=== PATIENT | female | born 1985 | race Caucasian/White ===

== ENCOUNTER 2020-03-04 10:35 | Day surgery (SDC) | payer OTHER ==
[2020-03-04] MEDS ORDERED: PROPOFOL 200 MG/20 ML VIAL IVP ONE (10:36)
[2020-03-04] MEDS ORDERED: ONDANSETRON 4 MG/2 ML VIAL IVP ONE (10:36)
[2020-03-04] MEDS ORDERED: MIDAZOLAM 2 MG/2 ML VIAL IVP ONE (10:36)
[2020-03-04] MEDS ORDERED: fentaNYL 100 MCG/2 ML VIAL IVP ONE (10:36)
[2020-03-04] MEDS ORDERED: LACTATED RINGERS 1,000 ML IV ONE (10:45)
--- NOTE | 2020-03-04 11:11 | ANESTHESIA ---
Pre-Anesthesia VS, & Labs - Diagnosis Lost IUD - Procedure removal/replacement of IUD Vital Signs: Temp Pulse Resp BP Pulse Ox 36.2 C L 56 L 12 122/68 98 03/04/20 10:45 03/04/20 10:45 03/04/20 10:45 03/04/20 10:45 03/04/20 10:45 Height 5 ft 4.57 in Weight (kg) 86.2 kg - NPO >8 hours - Is Patient ?: No - Lab Results Lab results reviewed: Yes Home Medications and Allergies Home Medications: Ambulatory Orders Ibuprofen [Motrin] 600 mg PO Q6H PRN 03/02/20 Multivitamin 1 each PO DAILY 03/02/20 [place]-3/Dha/Epa/Fish Oil [Fish Oil 1,000 mg Softgel] 1 each PO DAILY 03/02/20 Ibuprofen [Motrin] 600 mg PO Q6H PRN 03/02/20 Multivitamin 1 each PO DAILY 03/02/20 [place]-3/Dha/Epa/Fish Oil [Fish Oil 1,000 mg Softgel] 1 each PO DAILY 03/02/20 Allergies/Adverse Reactions: Allergies Allergy/AdvReac Type Severity Reaction Status Date / Time No Known Drug Allergies Allergy Verified 03/02/20 13:39 Anes History & Medical History - Anesthetic History Anesthesia Complications: reports: Post-Operative Nausea/Vomiting (w/ACL GA) Family history of Anesthesia Complications: Denies Family history of Malignant Hyperthermia: Denies - Medical History Cardiovascular: reports: None Pulmonary: reports: None Gastrointestinal: reports: None Urinary: reports: Retention Musculoskeletal: reports: None Endocrine/Autoimmune: reports: None Skin: reports: None Psychosocial: reports: Alcohol (social, 1-2 month) - Surgical History Gynecologic: section Orthopedic: ACL reconstruction, Other Exam General: Alert, Oriented x3, Cooperative Dental: WNL Mouth Opening: Greater than 4 Fingerbreadths Neck Mobility: Normal Mallampati classification: I Thyromental Distance: greater than 6 cm Respiratory: Lungs clear, Normal breath sounds, No respiratory distress Cardiovascular: Regular rate Neurological: Normal speech Mental/Cognitive Status: Alert/Oriented X3, Normal for patient Plan Anesthesia Type: General (back-up), Total IV Consent for Procedure(s) Verified and Reviewed: Yes Code Status: Attempt Resuscitation ASA classification: 1-Healthy patient Is this case an emergency?: No
[2020-03-04 11:18] LABS: HCG UR QUAL NEGATIVE
[2020-03-04] MEDS ORDERED: LEVONORGESTREL 20 MCG/24H IUD IY ONE (12:11)
--- NOTE | 2020-03-04 12:30 | OPERATIVE REPORT ---
Operative Report - General Procedure Date: 03/04/20 Planned Procedure: Removal and replacement of Mirena IUD Pre-Op Diagnosis: Lost IUD string Procedure Performed: TANIA Post Op Diagnosis: TANIA - Procedure Note Primary Surgeon: Iva Anesthesia Provider: Angela Anesthesia Technique: MAC IV Fluids (mL): 500 Estimated Blood Loss (mL): 0 Indications: inability to remove IUD in the office Findings: EUA: normal anteverted uterus, normal adnexa Operative findings: uterus sound 8 cm; Mirena IUD in situ - Other Other Information/Narrative: The patient was brought to the operating room and placed supine on the operating table. She was then given sedation in the form of monitored anesthesia care. Her legs were placed in low lithotomy stirrups and she was prepped and draped in the usual sterile fashion. A timeout was performed. An exam under anesthesia was performed. A speculum was placed in her vagina . A single-tooth tenaculum was applied to her cervix and the uterus was sounded to 8 cm. The old IUD was removed with a [place] forceps. A Mirena IUD was placed without incident and the string was shortened to 3 cm. The tenaculum was removed. Instruments were withdrawn from the vagina and the patient was awakened and taken to the same day surgery suite in stable condition.
[2020-03-04] MEDS ORDERED: KETOROLAC 30 MG/ML VIAL ONE (12:50)
[2020-03-04 13:05] VITALS: BP 106/77
== END 2020-03-04 10:36 | disposition home or self-care (01) ==
LOC: SDS 10:35
PROVIDERS: ATTEND Obstetrics & Gynecology
DX: Z30.433 Encounter for removal and reinsertion of intrauterine contraceptive device (principal); T83.31XA Breakdown (mechanical) of intrauterine contraceptive device, initial encounter
CPT/HCPCS: 81025